=== PATIENT | male | born 1980 | race Caucasian/White ===

== ENCOUNTER 2017-04-27 19:39 | Emergency (ER) | payer BC ==
--- NOTE | 2017-04-27 20:02 | EDPHY ---
H & P Stated Complaint: pt says seen by couple's therapist and expressed SI - 2-3 days ago, no si n Source: Patient - Medical/Surgical History Hx Asthma: No Hx Chronic Respiratory Disease: No Hx Diabetes: No Hx Cardiac Disease: No Hx Renal Disease: No Hx Cirrhosis: No Hx Alcoholism: No Hx HIV/AIDS: No Hx Splenectomy or Spleen Trauma: No Other PMH: adhd - Social History Smoking Status: Never smoked HPI/ROS: HPI CHIEF COMPLAINT: Depression, passive suicidal ideation HISTORY OF PRESENT ILLNESS: This patient very pleasant 37-year-old male, significant past medical history for depression and attention deficit hyperactivity disorder does not take any daily depression medications presents emergency room voluntarily by private vehicle with his after he was in counseling with a therapist he has been seen for 2 years. He happened to mention that he had a rough weekend with worsening depression and thoughts of suicide on Thursday. No specific plan. His therapist recommend that he comes emergency room for further evaluation. Upon arrival to the emergency room the patient denies having any suicidal ideation but is requesting mental health evaluation. Does tell me feels more depressed. is at bedside. Past Medical History: Depression, attention deficit hyperactivity disorder Past Surgical History: No significant surgical history Social History: Denies daily use drugs alcohol tobacco products Family History: Noncontributory ROS REVIEW OF SYSTEMS: A comprehensive 10 point review of systems is otherwise negative aside from elements mentioned in the history of present illness. Exam Constitutional appears well nontoxic, triage nursing summary reviewed, vital signs reviewed, awake/alert. Eyes normal conjunctivae and sclera, EOMI, PERRLA. HENT normal inspection, atraumatic, moist mucus membranes, no epistaxis, neck supple/ no meningismus, no raccoon eyes. Respiratory clear to auscultation bilaterally, normal breath sounds, no respiratory distress, no wheezing. Cardiovascular rate normal, regular rhythm, no murmur, no edema, distal pulses normal. Gastrointestinal soft, non-tender, no rebound, no guarding, normal bowel sounds, no distension, no pulsatile mass. Genitourinary no CVA tenderness. Musculoskeletal no midline vertebral tenderness, full range of motion, no calf swelling, no tenderness of extremities, no meningismus, good pulses, neurovascularly intact. Skin pink, warm, & dry, no rash, skin atraumatic. Neurologic awake, alert and oriented x 3, AAOx3, moves all 4 extremities equally, motor intact, sensory intact, CN II-XII intact, normal cerebellar, normal vision, normal speech. Psychiatric flat affect Heme/Lymph/Immune no lymphadenopathy. Differential Diagnosis: Includes but is not limited to in a particular order, acute depression, passive suicidal ideation, mood disorder Medical Decision Making: Plan for this patient IV blood draw for medical clearance. I do not feel this patient needs M1 hold at this time. He is not actively suicidal. He is voluntary. Would like to speak with mental health. After medical clearance will request mental health evaluation. Re-evaluation: 2100: Patient is signed over to Dr. Vergara at 9:00 p.m. shift change. Patient in medical clearance and then mental evaluation. Voluntary. Depression (Severiano Gomes) Constitutional: Initial Vital Signs Temperature (C) 37.3 C 04/27/17 19:42 Heart Rate 101 H 04/27/17 19:42 Respiratory Rate 16 04/27/17 19:42 Blood Pressure 158/97 H 04/27/17 19:42 O2 Sat (%) 99 04/27/17 19:42 O2 Delivery Mode Room Air Allergies/Adverse Reactions: No Known Allergies Allergy (Unverified 04/27/17 19:46) Home Medications: Medication Instructions Recorded Adderall 20 mg (*) 04/27/17 Hydrocodone/APAP 5/325 [[place] 1 - 2 tab PO Q4H PRN #10 tab 04/27/17 5/325 (RX)] Medical Decision Making ED Course/Re-evaluation: 11:15 p.m. the patient has been evaluated by Mental Health. They find that he is not acutely suicidal. They recommend discharge. He is requesting some pain medication for his neck which she has chronic neck pain because it is keeping him from sleeping. (Paul Vergara) Differential Diagnosis: Partial list of the Differential diagnosis considered include but were not limited to; depression, situational anxiety, suicidality and although unlikely based on the history and physical exam, I also considered substance abuse neck injury, spinal cord injury dissection, occlusion. (Paul Vergara) - Data Points Laboratory Results: Laboratory Results 04/27/17 20:30 04/27/17 20:30 04/27/17 04/27/17 04/27/17 20:35 20:30 20:30 WBC 6.40 10^3/uL 10^3/uL (3.80-9.50) RBC 5.20 10^6/uL 10^6/uL (4.40-6.38) Hgb 16.4 g/dL g/dL (13.7-17.5) Hct 45.7 % % (40.0-51.0) MCV 87.9 fL fL (81.5-99.8) MCH 31.5 pg pg (27.9-34.1) MCHC 35.9 g/dL g/dL (32.4-36.7) RDW 12.4 % % (11.5-15.2) Plt Count 269 10^3/uL 10^3/uL (150-400) MPV 10.4 fL fL (8.7-11.7) Neut % (Auto) 60.5 % % (39.3-74.2) Lymph % (Auto) 30.6 % % (15.0-45.0) [place] % (Auto) 7.7 % % (4.5-13.0) Eos % (Auto) 0.3 % L % (0.6-7.6) Baso % (Auto) 0.6 % % (0.3-1.7) Nucleat RBC Rel Count 0.0 % % (0.0-0.2) Absolute Neuts (auto) 3.87 10^3/uL 10^3/uL (1.70-6.50) Absolute Lymphs (auto) 1.96 10^3/uL 10^3/uL (1.00-3.00) Absolute Monos (auto) 0.49 10^3/uL 10^3/uL (0.30-0.80) Absolute Eos (auto) 0.02 10^3/uL L 10^3/uL (0.03-0.40) Absolute Basos (auto) 0.04 10^3/uL 10^3/uL (0.02-0.10) Absolute Nucleated RBC 0.00 10^3/uL 10^3/uL (0-0.01) Immature Gran % 0.3 % % (0.0-1.1) Immature Gran # 0.02 10^3/uL 10^3/uL (0.00-0.10) Sodium 138 mEq/L mEq/L (134-144) Potassium 3.9 mEq/L mEq/L (3.5-5.2) Chloride 103 mEq/L mEq/L (97-110) Carbon Dioxide 21 mEq/l L mEq/l (22-31) Anion Gap 14 mEq/L mEq/L (8-16) BUN 11 mg/dL mg/dL (7-23) Creatinine 0.9 mg/dL mg/dL (0.7-1.3) Estimated GFR > 60 Glucose 94 mg/dL mg/dL (70-100) Calcium 10.0 mg/dL mg/dL (8.5-10.4) Salicylates < 1.0 mg/dL L mg/dL (2.0-20.0) Urine Opiates Screen NEGATIVE (NEGATIVE) Acetaminophen < 10 mcg/mL L mcg/mL (10.0-30.0) Urine Barbiturates NEGATIVE (NEGATIVE) Ur Phencyclidine Scrn NEGATIVE (NEGATIVE) Ur Amphetamine Screen NON-NEGATIVE H (NEGATIVE) U Benzodiazepines Scrn NEGATIVE (NEGATIVE) Urine Cocaine Screen NEGATIVE (NEGATIVE) U Marijuana (THC) Screen NEGATIVE (NEGATIVE) Ethyl Alcohol < 10 mg/dL mg/dL (0-10) Departure - Departure Disposition: Home, Routine, Self-Care Clinical Impression: Depression Qualifiers: Depression Type: major depressive disorder Major depression recurrence: recurrent Active/Remission status: currently active Major depression episode severity: mild Qualified Code(s): F33.0 - Major depressive disorder, recurrent, mild Condition: Good Instructions: Depression (ED) Referrals: Rivas Milligan DO [Primary Care Provider] - As per Instructions Prescriptions: Hydrocodone/APAP 5/325 [[place] 5/325 (RX)] 1 - 2 tab PO Q4H PRN #10 tab PRN Reason: Pain, Moderate
[2017-04-27 20:47] LABS: ANION GAP 14 mEq/L (8-16); CARBON DIOXIDE 21 mEq/l (22-31); CHLORIDE 103 mEq/L (97-110); CREATININE 0.9 mg/dL (0.7-1.3); ETHANOL SERUM < 10 mg/dL (0-10); GLOMERULAR FILTRATION RATE > 60; GLUCOSE 94 mg/dL (70-100); POTASSIUM 3.9 mEq/L (3.5-5.2); SALICYLATE < 1.0 mg/dL (2.0-20.0); SODIUM 138 mEq/L (134-144)
[2017-04-27 20:49] LABS: % IMMATURE GRANULYOCYTES 0.3 % (0.0-1.1); ABSOLUTE IMMATURE GRANULOCYTES 0.02 10^3/uL (0.00-0.10); ADD DIFF? NO; ADD MORPH? NO; ADD SCAN? NO; ATYPICAL LYMPHOCYTE FLAG 0 (0-99); FRAGMENT RBC FLAG 10 (0-99); HEMATOCRIT 45.7 % (40.0-51.0); HEMOGLOBIN 16.4 g/dL (13.7-17.5); LEFT SHIFT FLG 0 (0-99); LIPEMIA HEMOLYSIS FLAG 90 (0-99); MEAN CELL HEMOGLOBIN 31.5 pg (27.9-34.1); MEAN CELL HEMOGLOBIN CONCENTR. 35.9 g/dL (32.4-36.7); MEAN CELL VOLUME 87.9 fL (81.5-99.8); MEAN PLATELET VOLUME 10.4 fL (8.7-11.7); PLATELET CLUMPS FLAG 20 (0-99); PLATELET COUNT 269 10^3/uL (150-400); RED CELL DISTRIBUTION WIDTH 12.4 % (11.5-15.2)
[2017-04-28 02:23] VITALS: BP 132/96; PULSE 81; RESP 18; TEMP 98.1; O2SAT 95
== END 2017-04-28 | disposition home or self-care (01) ==
DX: F33.0 Major depressive disorder, recurrent, mild (principal)
CPT/HCPCS: 80305; G0480